=== PATIENT | female | born 1990 | race Caucasian/White ===

== ENCOUNTER 2020-10-12 19:39 | Emergency (ER) | payer OTHER ==
[2020-10-12] MEDS ORDERED: BROMFED DM COU473 ML PO (21:56)
[2020-10-12] MEDS ORDERED: MEDROL 4MG DOSEP4 MG PO (21:56)
[2020-10-12] MEDS ORDERED: VENTOLIN HFA IN18 GM INH (21:56)
== END 2020-10-12 22:07 | disposition home or self-care (01) ==
LOC: FER 19:39
DX: J45.901 Unspecified asthma with (acute) exacerbation (principal); Z20.822 Contact with and (suspected) exposure to COVID-19; F17.210 Nicotine dependence, cigarettes, uncomplicated
CPT/HCPCS: 71046; 94640; 94664; J7512; U0002